=== PATIENT | female | born 1970 | race Hispanic/Latino ===

== ENCOUNTER 2017-06-09 09:38 | Outpatient (CLI) | payer BC | END 2017-06-09 09:39 | disposition home or self-care (01) | LOC: BICMAMMO 09:38 | PROVIDERS: ATTEND Nurse Practitioner Family | DX: R92.8 Other abnormal and inconclusive findings on diagnostic imaging of breast (principal); Z87.898 Personal history of other specified conditions | CPT/HCPCS: 77066; G0279 ==

== ENCOUNTER 2017-08-11 22:55 | Emergency (ER) | payer BC ==
[2017-08-11 23:35] LABS: #Eosinphils 0.2 thou/uL (0.0-0.7); #Lymphocytes 2.9 thou/uL (1.20-3.40); #Monocytes 0.4 thou/uL (0.11-0.59); #Neutrophils 4.2 thou/uL (1.40-6.50); %Basophils 0.2 % (0.0-1.0); %Eosinophils 2.2 % (0.0-10.0); %Lymphocytes 37.9 % (21.0-51.0); %Monocytes 5.4 % (0.0-10.0); %Neutrophils 54.3 % (42.0-75.0); Hemoglobin 13.9 g/dL (12.0-16.0); Mean Corpuscular HGB CONC 34.3 g/dL (32.0-36.0); Mean Corpuscular Hemoglobin 29.1 pg (27.0-31.0); Mean Corpuscular Volume 84.8 fl (81.0-99.0); Mean Platelet Volume 7.7 fL (7.4-10.4); Platelet Count 252 thou/uL (130-400); RBC Distribution Width 12.9 % (11.5-14.5); Red Blood Cell (RBC) Count 4.77 mill/uL (4.20-5.40); White Blood Cell (WBC) Count 7.7 thou/uL (4.8-10.8)
[2017-08-11 23:46] LABS: ALT (SGPT) 24 U/L (8-55); AST (SGOT) 17 U/L (5-34); Albumin 4.2 g/dL (3.5-5.0); Alkaline Phosphatase 119 U/L (40-150); Anion Gap 12 mmol/L (10-20); BUN (Urea Nitrogen) 23 mg/dL (7.0-18.7); Bilirubin, Total 0.2 mg/dL (0.2-1.2); CK (CPK) 101 U/L (29-168); Calc. Creatinine Clearance 0 mL/min (70-130); Calcium 10.1 mg/dL (7.8-10.44); Carbon Dioxide 27 mmol/L (22-29); Chloride 104 mmol/L (98-107); Estimated GFR-MDRD 70; Globulin 3.8 g/dL (2.4-3.5); Glucose 124 mg/dL (70-105); Potassium 3.8 mmol/L (3.5-5.1); Sodium 139 mmol/L (136-145)
--- NOTE | 2017-08-11 23:55 | RAD ---
CHEST ONE VIEW: 08/11/17 HISTORY: 47-year-old female with history of chest pain. COMPARISON: 08/03/12. FINDINGS/IMPRESSION: Heart size is normal. The lungs are clear. No pneumonia, edema or pleural effusion. POS: [facility]
[2017-08-11 23:57] LABS: CKMB 0.5 ng/mL (0-6.6); Troponin I Less than 0.010 ng/mL (< 0.028)
== END 2017-08-12 01:54 | disposition left against medical advice (07) ==
LOC: ERS 22:55
DX: Z53.21 Procedure and treatment not carried out due to patient leaving prior to being seen by health care provider (principal)
CPT/HCPCS: 36415; 71045; 80053; 82550; 82553; 84484; 85025; 93005

== ENCOUNTER 2018-03-14 09:51 | Outpatient (CLI) | payer BC ==
--- NOTE | 2018-03-14 12:25 | ULT ---
RIGHT BREAST ULTRASOUND: COMPARISON: 06/09/2017. HISTORY: Complex cyst seen at the 9 'clock position of the right breast on prior ultrasound. A simple cyst wa s seen in the 7 o'clock position of the right breast. Short interval followup for the complex cyst a t the 9 o'clock position. TECHNIQUE: Multiplanar, banerjee scale, and color Doppler images were obtained in a targeted ultrasound of the right breast. FINDINGS: At the 9 o'clock position of the right breast, there is a 6 mm isoechoic well circumscribed structure which is stable compared to the prior examination and may represent a complex cyst. Increased throu gh transmission is seen. An anechoic cyst is seen in the 7 o'clock position of the right breast. No suspicious shadowing is seen in the right breast. IMPRESSION: BIRADS CATEGORY 2 - benign findings. Annual screening mammography is recommended. The patient is du e for annual mammography in June of 2018. POS: [facility]
== END 2018-03-14 09:52 | disposition home or self-care (01) ==
LOC: BICULT 09:51
PROVIDERS: ATTEND Nurse Practitioner Family
DX: N60.01 Solitary cyst of right breast (principal)

== ENCOUNTER 2018-04-10 16:40 | Emergency (ER) | payer BC ==
[2018-04-10] MEDS ORDERED: Iopamidol 370 76% 100 ML VIAL ONE (16:42)
[2018-04-10 17:18] LABS: Bilirubin Negative (Negative); Blood, Urine Negative (Negative); Clarity CLEAR (Clear); Glucose, Urine (Dipstick) Negative (Negative); Leukocyte Negative (Negative); Nitrite Negative (Negative); Protein, Urine (Dipstick) Negative (Neg-Trace); Specific Gravity, Urine 1.024 (1.002-1.036); Urobilinogen 0.2 mg/dL (0.2-1.0); pH, Urine 5.5 (5.0-9.0)
[2018-04-10 18:08] LABS: #Eosinphils 0.1 thou/uL (0.0-0.7); #Lymphocytes 1.9 thou/uL (1.20-3.40); #Monocytes 0.3 thou/uL (0.11-0.59); #Neutrophils 4.1 thou/uL (1.40-6.50); %Basophils 0.2 % (0.0-1.0); %Eosinophils 1.8 % (0.0-10.0); %Lymphocytes 28.9 % (21.0-51.0); %Monocytes 5.3 % (0.0-10.0); %Neutrophils 63.9 % (42.0-75.0); Hemoglobin 13.9 g/dL (12.0-16.0); Mean Corpuscular HGB CONC 34.5 g/dL (32.0-36.0); Mean Corpuscular Hemoglobin 29.1 pg (27.0-31.0); Mean Corpuscular Volume 84.3 fL (78.0-98.0); Mean Platelet Volume 7.9 fL (7.4-10.4); Platelet Count 272 thou/uL (130-400); RBC Distribution Width 12.7 % (11.5-14.5); Red Blood Cell (RBC) Count 4.77 mill/uL (4.20-5.40); White Blood Cell (WBC) Count 6.4 thou/uL (4.8-10.8)
[2018-04-10 18:28] LABS: ALT (SGPT) 26 U/L (8-55); AST (SGOT) 21 U/L (5-34); Albumin 4.1 g/dL (3.5-5.0); Alkaline Phosphatase 110 U/L (40-150); Anion Gap 13 mmol/L (10-20); BUN (Urea Nitrogen) 17 mg/dL (7.0-18.7); Bilirubin, Total 0.3 mg/dL (0.2-1.2); Calc. Creatinine Clearance 0 mL/min (70-130); Calcium 9.5 mg/dL (7.8-10.44); Carbon Dioxide 25 mmol/L (22-29); Chloride 104 mmol/L (98-107); Estimated GFR-MDRD 84; Globulin 3.9 g/dL (2.4-3.5); Glucose 103 mg/dL (70-105); Lipase 29 U/L (8-78); Potassium 3.9 mmol/L (3.5-5.1); Sodium 138 mmol/L (136-145)
--- NOTE | 2018-04-10 19:08 | ULT ---
RIGHT UPPER QUADRANT ULTRASOUND: History: Right upper quadrant pain. Back pain. Technique: Multiplanar grayscale and color doppler images were obtained in a right upper quadrant abd ominal ultrasound. FINDINGS: The liver demonstrates increased echogenicity without focal lesions or intrahepatic ductal dilatation . There may be a small amount of sludge in the gallbladder. No shadowing stones are seen in the gallb ladder. There is no evidence of gallbladder wall thickening or pericholecystic fluid. The common bile duct is enlarged measuring 7 mm. The visualized portions of the pancreas are unremarkable. The right kidney is normal in echogenicity without hydronephrosis or calculi and measures 10.1 cm in length. IMPRESSION: 1. Fatty liver. 2. Possible gallbladder sludge. POS: [facility]
[2018-04-10] MEDS ORDERED: Morphine 2 MG/ML SYRINGE ONE (19:09)
[2018-04-10] MEDS ORDERED: Promethazine HCl 25 MG/ML VIAL ONE (21:10)
[2018-04-10] MEDS ORDERED: Morphine 4 MG/ML VIAL ONE (21:10)
--- NOTE | 2018-04-10 23:08 | CT ---
CT ABDOMEN AND PELVIS WITH CONTRAST: Comparison: None. History: Right flank pain that began on Lamine. Diarrhea. Technique: Multiple continuous axial images were obtained in a CT of the abdomen and pelvis with cont rast. Coronal reformat were performed. FINDINGS: Diffuse fatty infiltration of the liver is seen. The gallbladder, kidneys, adrenal glands, spleen, an d pancreas are unremarkable. No free air, free fluid, or stranding changes are seen in the abdomen or pelvis. The large and small bowel are unremarkable. The appendix is not definitely seen and may have been rem herman. The patient is status post hysterectomy. No abdominal or lymphadenopathy are seen. The osseous structures, visualized inferior thorax and abdominal wall soft tissues are unremarkable. IMPRESSION: 1. Fatty liver. 2. No evidence of acute intracranial/pelvic abnormality. POS: [facility]
== END 2018-04-10 22:40 | disposition home or self-care (01) ==
LOC: ERS 16:40
DX: S39.011A Strain of muscle, fascia and tendon of abdomen, initial encounter (principal); E11.9 Type 2 diabetes mellitus without complications; E78.00 Pure hypercholesterolemia, unspecified; X58.XXXA Exposure to other specified factors, initial encounter
CPT/HCPCS: 36415; 74177; 76705; 80053; 81003; 83690; 85025; 96361; 96374; 96375; 96376; J2270; J2550

== ENCOUNTER 2018-07-06 11:02 | Outpatient (CLI) | payer BC | END 2018-07-06 11:03 | disposition home or self-care (01) | LOC: BICMAMMO 11:02 | PROVIDERS: ATTEND Family Medicine | DX: Z12.31 Encounter for screening mammogram for malignant neoplasm of breast (principal); N63.10 Unspecified lump in the right breast, unspecified quadrant | CPT/HCPCS: 77063; 77067 ==

== ENCOUNTER 2018-09-06 14:00 | Emergency (ER) | payer BC ==
[2018-09-06 14:26] LABS: #Eosinphils 0.1 thou/uL (0.0-0.7); #Lymphocytes 2.3 thou/uL (1.20-3.40); #Monocytes 0.3 thou/uL (0.11-0.59); #Neutrophils 4.3 thou/uL (1.40-6.50); %Basophils 0.2 % (0.0-1.0); %Eosinophils 1.8 % (0.0-10.0); %Lymphocytes 32.2 % (21.0-51.0); %Monocytes 4.5 % (0.0-10.0); %Neutrophils 61.4 % (42.0-75.0); Hemoglobin 13.6 g/dL (12.0-16.0); Mean Corpuscular HGB CONC 33.1 g/dL (32.0-36.0); Mean Corpuscular Hemoglobin 28.8 pg (27.0-31.0); Mean Corpuscular Volume 86.9 fL (78.0-98.0); Mean Platelet Volume 7.9 fL (7.4-10.4); Platelet Count 251 thou/uL (130-400); RBC Distribution Width 12.7 % (11.5-14.5); Red Blood Cell (RBC) Count 4.72 mill/uL (4.20-5.40)
[2018-09-06 14:43] LABS: ALT (SGPT) 20 U/L (8-55); AST (SGOT) 16 U/L (5-34); Albumin 4.1 g/dL (3.5-5.0); Alkaline Phosphatase 109 U/L (40-150); Anion Gap 11 mmol/L (10-20); BUN (Urea Nitrogen) 15 mg/dL (7.0-18.7); Bilirubin, Total 0.4 mg/dL (0.2-1.2); Calc. Creatinine Clearance 0 mL/min (70-130); Calcium 9.6 mg/dL (7.8-10.44); Carbon Dioxide 27 mmol/L (22-29); Chloride 105 mmol/L (98-107); Estimated GFR-MDRD 82; Globulin 3.5 g/dL (2.4-3.5); Glucose 111 mg/dL (70-105); Lipase 22 U/L (8-78); Potassium 3.8 mmol/L (3.5-5.1); Protein, Total 7.6 g/dL (6.0-8.3); Sodium 139 mmol/L (136-145)
[2018-09-06 14:47] LABS: Bilirubin Negative (Negative); Blood, Urine Negative (Negative); Clarity CLOUDY (Clear); Glucose, Urine (Dipstick) Negative (Negative); Leukocyte Moderate (Negative); Nitrite Negative (Negative); Protein, Urine (Dipstick) Negative (Neg-Trace); Specific Gravity, Urine 1.016 (1.002-1.036); Urobilinogen 0.2 mg/dL (0.2-1.0); pH, Urine 5.5 (5.0-9.0)
[2018-09-06 14:50] LABS: Bacteria/HPF 3+ HPF (None Seen); Hyaline Casts/LPF 7-10 HYALINE CAST LPF (0-3 Hyaline); Pathc Cast-AUWi Flag 2.04 (0-2.49); Squamous Epithelial 0-3 HPF (0-3); WBC/HPF 21-50 HPF (0-3)
[2018-09-06 14:52] LABS: Yeast-AUWi Flag 65.2 (0-25.0)
[2018-09-06 14:59] LABS: RBC/HPF None Seen HPF (0-3); Yeast-All Forms None Seen HPF (None Seen)
--- NOTE | 2018-09-06 15:32 | ULT ---
Ultrasound abdomen limited: (Right upper quadrant) HISTORY: 48-year-old female with right upper quadrant abdominal pain FINDINGS: Gallbladder: Normal wall thickness. No evidence of pericholecystic fluid, gallstones, or sludge. Liver: Diffusely increased echogenicity, consistent with fatty liver. Common duct caliber: 6 mm Right kidney: No hydronephrosis. Pancreas: Nonspecific sonographic appearance. IMPRESSION: 1) Hepatic steatosis. 2) otherwise negative.
[2018-09-06] MEDS ORDERED: Morphine 4 MG/ML VIAL ONE (16:20)
[2018-09-06] MEDS ORDERED: Ondansetron ODT 8 MG TAB ONE (16:20)
== END 2018-09-06 16:47 | disposition home or self-care (01) ==
LOC: ERS 14:00
DX: K21.9 Gastro-esophageal reflux disease without esophagitis (principal); I10 Essential (primary) hypertension; E66.9 Obesity, unspecified; Z79.899 Other long term (current) drug therapy
CPT/HCPCS: 36415; 76705; 80053; 81003; 81015; 83690; 85025; 93005; 96372; J2270

== ENCOUNTER 2019-06-05 20:41 | Emergency (ER) | payer BC ==
[2019-06-05 21:30] LABS: #Basophils 0.1 thou/uL (0.0-0.2); #Eosinphils 0.1 thou/uL (0.0-0.7); #Lymphocytes 2.2 thou/uL (1.20-3.40); #Monocytes 0.5 thou/uL (0.11-0.59); #Neutrophils 4.7 thou/uL (1.40-6.50); %Basophils 0.7 % (0.0-1.0); %Eosinophils 1.6 % (0.0-10.0); %Lymphocytes 29.1 % (21.0-51.0); %Monocytes 6.7 % (0.0-10.0); %Neutrophils 61.9 % (42.0-75.0); Hemoglobin 13.7 g/dL (12.0-16.0); Mean Corpuscular HGB CONC 33.1 g/dL (32.0-36.0); Mean Corpuscular Hemoglobin 28.7 pg (27.0-31.0); Mean Corpuscular Volume 86.5 fL (78.0-98.0); Mean Platelet Volume 8.2 fL (7.4-10.4); Platelet Count 243 thou/uL (130-400); RBC Distribution Width 12.8 % (11.5-14.5); White Blood Cell (WBC) Count 7.6 thou/uL (4.8-10.8)
--- NOTE | 2019-06-05 21:46 | RAD ---
XR Chest Pa Lat STANDARD HISTORY: Left-sided chest pain COMPARISON: 06/08/2013 study. FINDINGS: Heart size and mediastinum are within normal limits. The lungs are clear of infiltrates. No significant bony findings. IMPRESSION: No active intrathoracic disease.
[2019-06-05 21:51] LABS: ALT (SGPT) 19 U/L (8-55); AST (SGOT) 14 U/L (5-34); Albumin 4.5 g/dL (3.5-5.0); Alkaline Phosphatase 111 U/L (40-110); Anion Gap 8 mmol/L (10-20); BUN (Urea Nitrogen) 21 mg/dL (9.8-20.1); Bilirubin, Total 0.3 mg/dL (0.2-1.2); CK (CPK) 106 U/L (29-168); Calc. Creatinine Clearance 0 mL/min (70-130); Calcium 10.4 mg/dL (7.8-10.44); Carbon Dioxide 34 mmol/L (22-29); Chloride 102 mmol/L (98-107); Estimated GFR-MDRD 78; Globulin 3.6 g/dL (2.4-3.5); Glucose 113 mg/dL (70-105); Lipase 35 U/L (8-78); Potassium 3.9 mmol/L (3.5-5.1); Protein, Total 8.1 g/dL (6.0-8.3); Sodium 140 mmol/L (136-145)
== END 2019-06-05 22:45 | disposition home or self-care (01) ==
LOC: ERS 20:41
DX: R07.9 Chest pain, unspecified (principal); Z79.899 Other long term (current) drug therapy
CPT/HCPCS: 36415; 71046; 80053; 82550; 83690; 84484; 85025; 93005; 94760

== ENCOUNTER 2019-06-29 13:49 | Emergency (ER) | payer BC ==
[2019-06-29] MEDS ORDERED: predniSONE 20 MG TAB ONE (14:43)
== END 2019-06-29 14:50 | disposition home or self-care (01) ==
LOC: ERS 13:49
DX: T78.40XA Allergy, unspecified, initial encounter (principal)
CPT/HCPCS: 99282; J7512

== ENCOUNTER 2019-06-30 11:04 | Inpatient (IN) | payer BC ==
[2019-06-30 13:12] LABS: #Eosinphils 0.1 thou/uL (0.0-0.7); #Lymphocytes 2.7 thou/uL (1.20-3.40); #Monocytes 0.6 thou/uL (0.11-0.59); #Neutrophils 6.5 thou/uL (1.40-6.50); %Basophils 0.5 % (0.0-1.0); %Eosinophils 0.9 % (0.0-10.0); %Lymphocytes 27.4 % (21.0-51.0); %Neutrophils 65.2 % (42.0-75.0); Mean Corpuscular Hemoglobin 29.3 pg (27.0-31.0); Mean Corpuscular Volume 86.2 fL (78.0-98.0); Mean Platelet Volume 8.4 fL (7.4-10.4); Platelet Count 244 thou/uL (130-400); Red Blood Cell (RBC) Count 4.78 mill/uL (4.20-5.40); White Blood Cell (WBC) Count 9.9 thou/uL (4.8-10.8)
[2019-06-30] MEDS ORDERED: MEROPENEM 1 GM/50 ML 1 GM in Premix Bag 1 BAG IVPB SCH (13:15)
[2019-06-30 13:33] LABS: ALT (SGPT) 18 U/L (8-55); AST (SGOT) 12 U/L (5-34); Albumin 4.3 g/dL (3.5-5.0); Alkaline Phosphatase 106 U/L (40-110); Anion Gap 10 mmol/L (10-20); BUN (Urea Nitrogen) 25 mg/dL (9.8-20.1); Bilirubin, Total 0.3 mg/dL (0.2-1.2); Calc. Creatinine Clearance 0 mL/min (70-130); Calcium 9.6 mg/dL (7.8-10.44); Carbon Dioxide 29 mmol/L (22-29); Chloride 102 mmol/L (98-107); Estimated GFR-MDRD 81; Globulin 3.7 g/dL (2.4-3.5); Glucose 92 mg/dL (70-105); Potassium 3.9 mmol/L (3.5-5.1); Sodium 137 mmol/L (136-145)
[2019-06-30] MEDS ORDERED: Acetaminophen 500 MG TAB ONE (14:37)
[2019-06-30] MEDS ORDERED: Ondansetron ODT 4 MG TAB PO PRN (14:52)
[2019-06-30] MEDS ORDERED: HYDROcodone/Acetaminophen 5/325 mg Tablet PO PRN (14:52)
[2019-06-30] MEDS ORDERED: Loperamide HCl 2 MG CAP PO PRN (14:52)
[2019-06-30] MEDS ORDERED: Calcium Carbonate 500 MG ChewTAB PO PRN (14:52)
[2019-06-30] MEDS ORDERED: Senokot S 8.6-50 MG TAB PO PRN (14:52)
[2019-06-30] MEDS ORDERED: Ondansetron PF 4 MG/2 ML Vial IVP PRN (14:52)
[2019-06-30] MEDS ORDERED: diphenhydrAMINE 25 MG CAP PO PRN (14:54)
[2019-06-30] MEDS ORDERED: Docusate 100 MG CAP PO PRN (14:54)
[2019-06-30] MEDS ORDERED: Melatonin 3 MG TAB PO PRN (14:54)
[2019-06-30] MEDS ORDERED: Benzonatate 100 MG CAP PO PRN (14:54)
[2019-06-30] MEDS ORDERED: Labetalol HCl 100 MG/20 ML VIAL SLOW IVP PRN (14:54)
[2019-06-30] MEDS ORDERED: methylPREDNISolone Sod Succ 40 MG VIAL IVP SCH (18:32)
[2019-06-30] MEDS ORDERED: diphenhydrAMINE 50 MG/ML VIAL IVP PRN (18:35)
[2019-06-30] MEDS ORDERED: Bacteriostatic Water 30 ML VIAL FS PRN (18:45)
--- NOTE | 2019-06-30 18:45 | PDOC.HHP ---
Hospitalist HPI - History of Present Illness UTI History of Present Illness: 49-year-old female with past medical history of urinary tract infection presents with UTI. Patient was seen by her primary care physician on Wednesday for urinary tract infection symptoms, a urine analysis and culture was obtained and the patient received intramuscular injection of antibiotic in the office. On Wednesday the patient filled an oral antibiotic with nitrofurantoin and had PRN pyridiom. On the patient noticed that she had above her gluteal region a large rash. She contacted her primary care physician who told her to go to the emergency department. Patient's urine culture, per the emergency department doctors growing Proteus that is sensitive to many oral antibiotics, however patient has significant drug allergies including other antibiotics which cause anaphylaxis and the only medication unit intravenous form that she has not had in the past is meropenem. I think find the patient on the medical floor she is breathing comfortably on room air. Patient is in no acute distress. I examine the drug reaction on the patient gluteal region which has mainly subsided and there are small area of bruising where it once was. Patient admitted to the medical unit for further evaluation. Hospitalist ROS - Review of Systems All other systems reviewed; all pertinent +/- noted in HPI/Subj Hospitalist History - Past Medical History Source: patient Infectious Disease: reports: Other (UTI) - Past Surgical History Past Surgical History: reports: (x3), Hysterectomy (partial with 1 ovary removal) - Family History Family History: reports: hypertension - Social History Smoking Status: Never smoker Alcohol: reports: None Drugs: reports: none Living Situation: With Family Activity level: independent ambulation - Exam General Appearance: NAD, awake alert Eye: anicteric sclera ENT: normocephalic atraumatic, moist mucosa Neck: supple, symmetric, no lymphadenopathy Heart: RRR, no murmur, no gallops, no rubs Respiratory: CTAB, no wheezes, no rales, no ronchi, normal chest expansion, no tachypnea Gastrointestinal: soft, non-tender, non-distended, no guarding, no rigidity Gastrointestinal - other findings: Mild suprapubic tenderness Extremities: no edema Skin - other findings: Superior gluteal region mild non palpable rash fading into a bruise Neurological: cranial nerve grossly intact, no weakness Musculoskeletal: normal tone, normal strength Psychiatric: normal affect, normal behavior, A&O x 3 Hospitalist Results - Labs Result Diagrams: 06/30/19 13:02 06/30/19 13:02 Lab results: WBC 9.9 thou/uL (4.8-10.8) 06/30/19 13:02 Hgb 14.0 g/dL (12.0-16.0) 06/30/19 13:02 Hct 41.2 % (36.0-47.0) 06/30/19 13:02 MCV 86.2 fL (78.0-98.0) 06/30/19 13:02 Plt Count 244 thou/uL (130-400) 06/30/19 13:02 Neutrophils % 65.2 % (42.0-75.0) 06/30/19 13:02 Sodium 137 mmol/L (136-145) 06/30/19 13:02 Potassium 3.9 mmol/L (3.5-5.1) 06/30/19 13:02 Chloride 102 mmol/L (98-107) 06/30/19 13:02 Carbon Dioxide 29 mmol/L (22-29) 06/30/19 13:02 BUN 25 mg/dL (9.8-20.1) H 06/30/19 13:02 Creatinine 0.75 mg/dL (0.6-1.1) 06/30/19 13:02 Glucose 92 mg/dL (70-105) 06/30/19 13:02 Calcium 9.6 mg/dL (7.8-10.44) 06/30/19 13:02 Total Bilirubin 0.3 mg/dL (0.2-1.2) 06/30/19 13:02 AST 12 U/L (5-34) 06/30/19 13:02 ALT 18 U/L (8-55) 06/30/19 13:02 Alkaline Phosphatase 106 U/L (40-110) 06/30/19 13:02 Serum Total Protein 8.0 g/dL (6.0-8.3) 06/30/19 13:02 Albumin 4.3 g/dL (3.5-5.0) 06/30/19 13:02 Hospitalist H&P A/P - Problem (1) UTI (urinary tract infection) Status: Acute (2) Proteus mirabilis infection Code(s): A49.8 - OTHER BACTERIAL INFECTIONS OF UNSPECIFIED SITE Status: Acute (3) Drug allergy Code(s): Z88.9 - ALLERGY STATUS TO UNSP DRUG/MEDS/BIOL SUBST STATUS Status: Acute (4) Obesity Code(s): E66.9 - OBESITY, UNSPECIFIED Status: Acute (5) Impaired glucose tolerance Code(s): R73.02 - IMPAIRED GLUCOSE TOLERANCE (ORAL) Status: Acute - Plan Plan: Plan: admit to medical unit infectious disease consultation in a.m. patient has had a dose of meropenem and has not had any signs of allergic reaction low chance of cross-reactivity, though patient has numerous allergies to medications patient was to be on prednisone for drug allergy, I will convert IV formulary IV Benadryl PRN allergy symptoms repeat urine analysis urine culture de-escalate to culture and sensitivity as able blood pressure control blood sugar control patient states that she is borderline hypertensive and borderline diabetic G.I. prophylaxis DVT prophylaxis
[2019-06-30 20:06] VITALS: BMI 35.5
[2019-06-30] MEDS: methylPREDNISolone Sod Succ 40 MG VIAL IVP SCH (20:25)
[2019-06-30] MEDS: Famotidine 20 MG TAB PO SCH (20:31)
[2019-06-30] MEDS: Meropenem 2 GM, Admixture Fee 1 EACH in Sodium Chloride 0.9% 100 ML IVPB SCH (21:32)
[2019-06-30] MEDS ORDERED: Meropenem 2 GM in Admixture Fee 1 EACH IVPB SCH (22:00)
[2019-07-01] MEDS: methylPREDNISolone Sod Succ 40 MG VIAL IVP SCH (01:12)
[2019-07-01] MEDS: Meropenem 2 GM, Admixture Fee 1 EACH in Sodium Chloride 0.9% 100 ML IVPB SCH ×3 (05:44→21:56)
[2019-07-01 06:11] LABS: #Lymphocytes 0.9 thou/uL (1.20-3.40); #Monocytes 0.1 thou/uL (0.11-0.59); #Neutrophils 6.9 thou/uL (1.40-6.50); %Basophils 0.1 % (0.0-1.0); %Eosinophils 0.1 % (0.0-10.0); %Monocytes 0.6 % (0.0-10.0); %Neutrophils 88.2 % (42.0-75.0); Hemoglobin 14.1 g/dL (12.0-16.0); Mean Corpuscular HGB CONC 34.1 g/dL (32.0-36.0); Mean Platelet Volume 8.4 fL (7.4-10.4); Platelet Count 240 thou/uL (130-400); RBC Distribution Width 13.2 % (11.5-14.5); White Blood Cell (WBC) Count 7.8 thou/uL (4.8-10.8)
[2019-07-01 06:36] LABS: Anion Gap 12 mmol/L (10-20); BUN (Urea Nitrogen) 19 mg/dL (9.8-20.1); Calc. Creatinine Clearance 140 mL/min (70-130); Calcium 9.3 mg/dL (7.8-10.44); Carbon Dioxide 26 mmol/L (22-29); Chloride 103 mmol/L (98-107); Estimated GFR-MDRD 79; Glucose 175 mg/dL (70-105); Potassium 4.1 mmol/L (3.5-5.1); Sodium 137 mmol/L (136-145)
[2019-07-01] MEDS: Famotidine 20 MG TAB PO SCH ×2 (08:44→20:16)
[2019-07-01 12:40] LABS: Hemoglobin A1c 5.8 % (4.0-6.0)
[2019-07-01] MEDS: Acetaminophen 325 MG TAB PO PRN ×2 (14:38→20:15)
--- NOTE | 2019-07-01 16:29 | PDOC.HOSPP ---
- Subjective Subjective: Seen and examined on the medical unit. Patient breathing comfortably on room air. Patient states that she has had no allergic type symptoms with the addition of meropenem. She is having no oral tingling or swelling. No rashes or other drug reaction. Patient states that the skin on her bottom is no longer itchy. - Objective Vital Signs & Weight: Vital Signs (12 hours) Temp Pulse Resp BP Pulse Ox 07/01/19 15:15 97.6 F 82 15 103/65 94 L 07/01/19 11:21 97.6 F 86 16 99/65 94 L 07/01/19 07:50 97.8 F 75 16 135/81 92 L Weight Weight 227 lb I&O: 06/30/19 07/01/19 07/02/19 06:59 06:59 06:59 Intake Total 680 Output Total 900 Balance -220 Result Diagrams: 07/01/19 05:48 07/01/19 05:48 Radiology Reviewed by me: Yes Hospitalist ROS - Review of Systems All other systems reviewed; all pertinent +/- noted in HPI/Subj - Medication Medications: Active Medications Generic Name Dose Route Start Last Admin Trade Name Freq PRN Reason Stop Dose Admin Acetaminophen 650 mg 06/30/19 14:52 07/01/19 14:38 Tylenol PO 650 mg Q4H PRN Administration Headache/Fever/Mild Pain (1-3) Famotidine 20 mg 06/30/19 21:00 07/01/19 08:44 Pepcid PO 20 mg BID TRES Administration Meropenem 2 gm/ Miscellaneous 100 mls @ 200 mls/hr 06/30/19 22:00 07/01/19 14 :56 Medication 1 each/ Sodium IVPB 100 mls Chloride Q8HR TRES Administration - Exam General Appearance: NAD, awake alert Eye: anicteric sclera ENT: normocephalic atraumatic, moist mucosa Neck: supple, symmetric, no lymphadenopathy Heart: no murmur, no gallops, no rubs Heart - other findings: Bradycardia Respiratory: CTAB, no wheezes, no rales, no ronchi, normal chest expansion Gastrointestinal: non-tender, no guarding, no rigidity Extremities: no edema Skin: no lesions Skin - other findings: Resolving supragluteal drug reaction Neurological: cranial nerve grossly intact, no focal deficits Musculoskeletal: normal strength Psychiatric: A&O x 3 Hosp A/P (1) UTI (urinary tract infection) Status: Acute (2) Proteus mirabilis infection Code(s): A49.8 - OTHER BACTERIAL INFECTIONS OF UNSPECIFIED SITE Status: Acute (3) Drug allergy Code(s): Z88.9 - ALLERGY STATUS TO UNSP DRUG/MEDS/BIOL SUBST STATUS Status: Acute (4) Obesity Code(s): E66.9 - OBESITY, UNSPECIFIED Status: Acute (5) Impaired glucose tolerance Code(s): R73.02 - IMPAIRED GLUCOSE TOLERANCE (ORAL) Status: Acute - Plan Plan: medical unit infectious disease consultation, recommendations appreciated climb broad- spectrum biotics with meropenem urine culture de-escalate to culture and sensitivity outpatient culture growing Proteus mirabilis which was sensitive to oral medications, however with significant drug allergies including anaphylaxis these medications were contraindicated status post two doses of IV Solu-Medrol have successfully calm down allergic reaction on patient's backside Benadryl PRN itching/medication side effects pain control blood pressure control hemoglobin A1c to monitor for diabetes, patient states that she is prediabetic blood sugar control G.I. prophylaxis DVT prophylaxis
[2019-07-02] MEDS: Acetaminophen 325 MG TAB PO PRN ×2 (04:54→14:42)
[2019-07-02] MEDS: Meropenem 2 GM, Admixture Fee 1 EACH in Sodium Chloride 0.9% 100 ML IVPB SCH ×2 (05:25→15:26)
[2019-07-02] MEDS: Famotidine 20 MG TAB PO SCH (09:14)
--- NOTE | 2019-07-02 13:17 | PDOC.HOSPP ---
- Subjective Subjective: Seen and examined. Continues to improve. No UTI symptoms. Afebrile. Patient tolerating meropenem without allergic reactions or drug side effects. Mild headache has been improved with Tylenol. Time was given for questions, all answered in detail. - Objective Vital Signs & Weight: Vital Signs (12 hours) Temp Pulse Resp BP Pulse Ox 07/02/19 11:32 98.4 F 68 16 111/78 94 L 07/02/19 08:00 97.8 F 76 16 119/77 96 07/02/19 04:56 97.6 F 68 16 121/77 96 Weight Weight 227 lb I&O: 07/01/19 07/02/19 07/03/19 06:59 06:59 06:59 Intake Total 680 690 Output Total 900 600 Balance -220 90 Result Diagrams: 07/01/19 05:48 07/01/19 05:48 Radiology Reviewed by me: Yes Hospitalist ROS - Review of Systems All other systems reviewed; all pertinent +/- noted in HPI/Subj - Medication Medications: Active Medications Generic Name Dose Route Start Last Admin Trade Name Freq PRN Reason Stop Dose Admin Acetaminophen 650 mg 06/30/19 14:52 07/02/19 04:54 Tylenol PO 650 mg Q4H PRN Administration Headache/Fever/Mild Pain (1-3) Famotidine 20 mg 06/30/19 21:00 07/02/19 09:14 Pepcid PO 20 mg BID TRES Administration Meropenem 2 gm/ Miscellaneous 100 mls @ 200 mls/hr 06/30/19 22:00 07/02/19 05 :25 Medication 1 each/ Sodium IVPB 100 mls Chloride Q8HR TRES Administration - Exam General Appearance: NAD, awake alert Eye: anicteric sclera ENT: normocephalic atraumatic, moist mucosa Neck: supple, symmetric, no lymphadenopathy Heart: no murmur, no gallops, no rubs Respiratory: CTAB, no wheezes, no rales, no ronchi, no tachypnea Gastrointestinal: soft, non-tender, no guarding, no rigidity Gastrointestinal - other findings: No longer with suprapubic tenderness Extremities: no edema Skin: no lesions, no rashes Neurological: cranial nerve grossly intact, no focal deficits Musculoskeletal: normal tone, normal strength Psychiatric: normal behavior, A&O x 3 Hosp A/P (1) UTI (urinary tract infection) Status: Acute (2) Proteus mirabilis infection Code(s): A49.8 - OTHER BACTERIAL INFECTIONS OF UNSPECIFIED SITE Status: Acute (3) Drug allergy Code(s): Z88.9 - ALLERGY STATUS TO UNSP DRUG/MEDS/BIOL SUBST STATUS Status: Acute (4) Obesity Code(s): E66.9 - OBESITY, UNSPECIFIED Status: Acute (5) Impaired glucose tolerance Code(s): R73.02 - IMPAIRED GLUCOSE TOLERANCE (ORAL) Status: Acute - Plan Plan: medical unit infectious disease consultation, recommendations appreciated Continue broad-spectrum biotics with meropenem urine culture de-escalate to culture and sensitivity outpatient culture growing Proteus mirabilis which was sensitive to oral medications, however with significant drug allergies including anaphylaxis these medications were contraindicated status post two doses of IV Solu-Medrol have successfully calm down allergic reaction on patient's backside Benadryl PRN itching/medication side effects pain control blood pressure control hemoglobin A1c 5.8, diet and exercise changes blood sugar control G.I. prophylaxis DVT prophylaxis
[2019-07-02 15:54] VITALS: BP 106/70; TEMP 97.5
--- NOTE | 2019-07-02 17:11 | CON ---
DATE OF CONSULTATION: REASON FOR CONSULTATION: Cystitis. HISTORY OF PRESENT ILLNESS: A 49-year-old patient with a history of partial hysterectomy, x3, and episodic UTIs usually once the year, which are treated with various oral antimicrobials, but lately she has developed what appears to be some hypersensitivity reactions of angioedema and rash to most oral outpatient antimicrobials, so she was admitted for treatment at this time. She is on meropenem and symptoms have improved with resolution of dysuria. She denies any headaches. No sore throat, odynophagia, or dysphagia. No dental pain. No back pain or flank pain. No fever or chills. No respiratory symptoms. Otherwise, no diarrhea. No diarrhea. No skin problems. PAST MEDICAL HISTORY: Infrequent UTIs usually in the form of cystitis once a year at the most and then multiple drug hypersensitivity reactions. MEDICATIONS: The list includes: 1. Amoxicillin. 2. Rocephin. 3. Ciprofloxacin. 4. Doxycycline. 5. Macrodantin. 6. Flagyl. 7. Sulfa drugs. FAMILY HISTORY: Noncontributory. SOCIAL HISTORY: She works driving a school bus. Does not smoke. Does not drink alcoholic beverages. PHYSICAL EXAMINATION: VITAL SIGNS: T-max 98.4 blood pressure 111/78, pulse 68, respirations 16, and O2 saturation 96. SKIN: Normal. There is no lymphadenopathy. She has a peripheral IV access. Voiding normally without difficulty at the moment. HEENT: Normal. LUNGS: Clear. HEART: S1 and S2. Regular rate. ABDOMEN: Soft with no tenderness in the suprapubic area. EXTREMITIES: Joints are normal. No edema. Pulses 1+ in dorsalis pedis. NEURO: Nonfocal. LABORATORY DATA: White cell count 9.9 and 7.8, differential with slight elevation of neutrophil percentage of 88 and creatinine 0.77. Liver profile normal. Globulin 3.7. There is a urinalysis, which was done at [facility] somewhere else. We do not have the results and there is a urine culture as well, we do not have the results for that. ASSESSMENT AND PLAN: Episodic cystitis. The last one prompted this admission because of multiple reported drug hypersensitivity reactions. She has completed now three days of meropenem and she is asymptomatic and eligible for discharge planning. Next time, one could consider fosfomycin, which can be taken orally every other day for three doses for treatment of cystitis as usually effective even for certain resistant pathogens. Job ID: [id number]
--- NOTE | 2019-07-03 04:04 | DIS ---
DATE OF ADMISSION: 06/30/2019 DATE OF DISCHARGE: 07/02/2019 REASON FOR HOSPITALIZATION: Urinary tract infection. SIGNIFICANT FINDINGS: The patient with complicated urinary tract infection with numerous allergies to oral antibiotics. PROCEDURES PERFORMED AND TREATMENTS RENDERED: The patient was admitted to the medical unit for close management. A urine culture from outpatient clinic with Proteus mirabilis, which was sensitive to meropenem, the patient was admitted and started on meropenem and she had a good response. The patient receiving 3 days of meropenem intravenously and an Infectious Disease consultation was requested. Please see full consultation note from Infectious Disease specialist, Dr. Sosa for details. Over the course of infusion of IV antibiotics with meropenem, the patient's symptoms have resolved. The patient is no longer having urinary tract infections without burning, frequency, urgency, or dysuria. The patient has remained afebrile throughout her hospitalization. The patient's WBC count is normal. The patient was recommended safe for discharge by Infectious Disease specialist, and discontinuation of antibiotics was recommended. The patient was discharged on 07/02/2019 in stable condition. CONDITION ON DISCHARGE: Stable. SPECIFIC INSTRUCTIONS FOR THE PATIENT/FAMILY: 1. The patient is recommended to take all home medications as directed. 2. The patient is recommended to follow up with primary care physician in the next 5-7 days. 3. The patient is recommended to follow up with Infectious Disease specialist, Dr. Sosa in the next 1-2 weeks. 4. The patient recommended to return to acute care hospital immediately if signs or symptoms return, worsen, or any other new symptoms occur. DISCHARGE MEDICATIONS: Please see full discharge medication list for details, as they were continued without changes. 1. Topamax 25 mg 1 tablet p.o. at bedtime. 2. Omeprazole 20 mg 1 tablet p.o. q.a.m. 3. No antibiotics were recommended per Infectious Disease specialist. Greater than 38 minutes spent coordinating care and discharge process for this patient. Job ID: [id number]
== END 2019-07-02 18:22 | disposition home or self-care (01) | DRG 690 ==
LOC: ERS 11:04 → SJJU 16:00
PROVIDERS: ADMIT Internal Medicine; ATTEND Internal Medicine
DX: N39.0 Urinary tract infection, site not specified (principal); E66.9 Obesity, unspecified; R73.02 Impaired glucose tolerance (oral); B96.4 Proteus (mirabilis) (morganii) as the cause of diseases classified elsewhere; Z88.1 Allergy status to other antibiotic agents; Z90.710 Acquired absence of both cervix and uterus; Z88.2 Allergy status to sulfonamides; Z88.8 Allergy status to other drugs, medicaments and biological substances; Z68.35 Body mass index [BMI] 35.0-35.9, adult
CPT/HCPCS: 36415; 80048; 80053; 83036; 85025; 96365; 99282; J2185; J2920; J3490; J7512

== ENCOUNTER 2019-12-13 18:40 | Emergency (ER) | payer BC, OTHER ==
--- NOTE | 2019-12-13 19:24 | RAD ---
LEFT HAND THREE VIEWS: 12/13/19 HISTORY: Left ring finger and left middle finger injury and pain. FINDINGS/IMPRESSION: No acute fracture or dislocation is seen. No radiopaque foreign body is seen. POS: [facility]
== END 2019-12-13 19:54 | disposition home or self-care (01) ==
LOC: ERS 18:40
DX: S63.617A Unspecified sprain of left little finger, initial encounter (principal); S63.615A Unspecified sprain of left ring finger, initial encounter; S63.613A Unspecified sprain of left middle finger, initial encounter; Z79.899 Other long term (current) drug therapy; W22.8XXA Striking against or struck by other objects, initial encounter

== ENCOUNTER 2020-02-15 18:07 | Emergency (ER) | payer BC ==
[2020-02-15] MEDS ORDERED: Lidocaine 4% Cream 5 GM TUBE w/ Tegaderm ONE (18:25)
[2020-02-15] MEDS ORDERED: diphenhydrAMINE 25 MG CAP ONE (18:27)
[2020-02-15] MEDS ORDERED: Dexamethasone 4 mg/ml Vial ONE (18:27)
[2020-02-15] MEDS ORDERED: Famotidine 20 MG TAB ONE (18:27)
== END 2020-02-15 19:20 | disposition home or self-care (01) ==
LOC: ERS 18:07
DX: T63.441A Toxic effect of venom of bees, accidental (unintentional), initial encounter (principal); R73.03 Prediabetes
CPT/HCPCS: 99282; J1100; Q0163

== ENCOUNTER 2020-04-02 21:05 | Emergency (ER) | payer BC ==
[2020-04-02] MEDS ORDERED: Ketorolac Tromethamine 30 MG/ML VIAL ONE (21:57)
[2020-04-02 22:05] LABS: #Eosinphils 0.1 thou/uL (0.0-0.7); #Lymphocytes 2.1 thou/uL (1.20-3.40); #Monocytes 0.6 thou/uL (0.11-0.59); %Basophils 0.2 % (0.0-1.0); %Eosinophils 2.2 % (0.0-10.0); %Lymphocytes 30.7 % (21.0-51.0); %Monocytes 8.8 % (0.0-10.0); %Neutrophils 58.2 % (42.0-75.0); Hemoglobin 13.9 g/dL (12.0-16.0); Mean Corpuscular HGB CONC 34.5 g/dL (32.0-36.0); Mean Corpuscular Hemoglobin 29.8 pg (27.0-31.0); Mean Corpuscular Volume 86.3 fL (78.0-98.0); Mean Platelet Volume 8.6 fL (7.4-10.4); Platelet Count 228 thou/uL (130-400); RBC Distribution Width 12.6 % (11.5-14.5); Red Blood Cell (RBC) Count 4.67 mill/uL (4.20-5.40); White Blood Cell (WBC) Count 6.9 thou/uL (4.8-10.8)
[2020-04-02 22:14] LABS: ALT (SGPT) 22 U/L (8-55); AST (SGOT) 18 U/L (5-34); Alkaline Phosphatase 103 U/L (40-110); Anion Gap 15 mmol/L (10-20); BUN (Urea Nitrogen) 23 mg/dL (9.8-20.1); Bilirubin, Total 0.2 mg/dL (0.2-1.2); Calc. Creatinine Clearance 0 mL/min (70-130); Calcium 9.6 mg/dL (7.8-10.44); Carbon Dioxide 23 mmol/L (22-29); Chloride 105 mmol/L (98-107); Estimated GFR-MDRD 50; Globulin 3.7 g/dL (2.4-3.5); Glucose 102 mg/dL (70-105); Potassium 4.2 mmol/L (3.5-5.1); Protein, Total 7.7 g/dL (6.0-8.3); Sodium 139 mmol/L (136-145)
[2020-04-02 23:09] LABS: Bilirubin Negative (Negative); Blood, Urine Negative (Negative); Clarity Clear (Clear); Glucose, Urine (Dipstick) Normal (Negative); Ketone, Urine Negative (Negative); Leukocyte Negative Leu/uL (Negative); Nitrite Negative (Negative); Protein, Urine (Dipstick) Negative (Neg-Trace); Specific Gravity, Urine 1.018 (1.002-1.036); Urobilinogen Normal mg/dL (Less than 2); pH, Urine 5.5 (5.0-9.0)
--- NOTE | 2020-04-02 23:56 | CT ---
CT of abdomen and pelvis: 04/02/2020 COMPARISON: 04/10/2018 HISTORY: Low back pain, urinary tract infection TECHNIQUE: Axial CT imaging at 5 mm intervals from lung bases through pubic symphysis without contras t. Coronal reformatted imaging obtained. FINDINGS: Lack of contrast media limits assessment of the viscera, bowel, vascular structures, and fo r lymphadenopathy. The imaged lung bases are unremarkable with no free intraperitoneal air or fluid seen. The hepatic parenchyma is hypodense suggesting steatosis. The gallbladder is contracted and not well assessed on this exam. The spleen, pancreas, adrenal glands, and kidneys appear unremarkable. No discrete nephrolithiasis is seen on either side. There is no evidence for obstructive uropathy. There is diverticulosis of the sigmoid colon with no evidence for diverticulitis. No evidence for bow el inflammatory change or bowel obstruction. No acute osseous abnormality. Degenerative change is noted at the lumbosacral junction. IMPRESSION: No evidence for obstructive uropathy or nephrolithiasis.
== END 2020-04-03 00:22 | disposition home or self-care (01) ==
LOC: ERS 21:05
DX: R10.30 Lower abdominal pain, unspecified (principal); R35.0 Frequency of micturition; G43.909 Migraine, unspecified, not intractable, without status migrainosus
CPT/HCPCS: 74176; 80053; 81003; 85025; 87077; 87086; 87186; 96374; J1885

== ENCOUNTER 2020-04-10 11:07 | Emergency (ER) | payer BC ==
[2020-04-10] MEDS ORDERED: Dexamethasone 4 mg/ml Vial ONE (11:41)
[2020-04-10] MEDS ORDERED: Famotidine 20 MG TAB ONE ×2 (11:41→11:48)
[2020-04-10] MEDS ORDERED: diphenhydrAMINE 25 MG CAP ONE (11:41)
[2020-04-10] MEDS ORDERED: Dexamethasone 4 MG TAB ONE (11:58)
[2020-04-10] MEDS ORDERED: Fosfomycin 3 GM/Packet PO SCH (12:00)
[2020-04-10 12:21] LABS: Bilirubin Negative (Negative); Blood, Urine Negative (Negative); Clarity Clear (Clear); Glucose, Urine (Dipstick) Normal (Negative); Ketone, Urine Negative (Negative); Leukocyte Negative Leu/uL (Negative); Nitrite Negative (Negative); Pregnancy Test - Urine (BHCG) Negative (Negative); Protein, Urine (Dipstick) Negative (Neg-Trace); Specific Gravity, Urine 1.032 (1.002-1.036); Urobilinogen Normal mg/dL (Less than 2); pH, Urine 5.5 (5.0-9.0)
[2020-04-10 12:22] LABS: Pregu Control Background? CLEAR/WHITE (CLR/WHITE); Pregu Control Bar Appear? YES (CONTROL BAR); Specific Gravity 1.032 (1.002-1.036)
== END 2020-04-10 13:05 | disposition home or self-care (01) ==
LOC: ERS 11:07
DX: R22.0 Localized swelling, mass and lump, head (principal); T36.1X5A Adverse effect of cephalosporins and other beta-lactam antibiotics, initial encounter; N39.0 Urinary tract infection, site not specified; G43.909 Migraine, unspecified, not intractable, without status migrainosus
CPT/HCPCS: 81003; 81025; 99283; J1100; J8540; Q0163

== ENCOUNTER 2020-06-15 10:47 | Emergency (ER) | payer BC ==
[2020-06-15] MEDS ORDERED: Acetaminophen 500 MG TAB ONE (11:48)
[2020-06-15] MEDS ORDERED: Fosfomycin 3 GM/Packet PO SCH (12:00)
[2020-06-15 12:02] LABS: Bilirubin Negative (Negative); Blood, Urine Large (Negative); Glucose, Urine (Dipstick) Negative (Negative); Ketone, Urine Negative (Negative); Leukocyte Small (Negative); Protein, Urine (Dipstick) 100 mg/dL (Neg-Trace); Urobilinogen 0.2 mg/dL (Less than 2); pH, Urine 5.5 (5.0-9.0)
[2020-06-15 12:03] LABS: Clarity Turbid (Clear)
[2020-06-15 12:05] LABS: Nitrite Unable to Interpret (Negative); Specific Gravity, Urine 1.023 (1.002-1.036)
[2020-06-15 12:06] LABS: Pregnancy Test - Urine (BHCG) Negative (Negative); Pregu Control Background? CLEAR/WHITE (CLR/WHITE); Pregu Control Bar Appear? YES (CONTROL BAR); Specific Gravity 1.023 (1.002-1.036)
[2020-06-15 12:10] LABS: RBC/HPF Greater than 50 HPF (0-3); WBC/HPF Greater Than 50 HPF (0-3)
[2020-06-15 12:11] LABS: Bacteria/HPF 3+ HPF (None Seen); Squamous Epithelial 0-3 HPF (0-3)
== END 2020-06-15 13:29 | disposition home or self-care (01) ==
LOC: ERS 10:47
DX: N30.91 Cystitis, unspecified with hematuria (principal); R73.03 Prediabetes
CPT/HCPCS: 81003; 81015; 81025; 87077; 87086; 87186; 99283

== ENCOUNTER 2021-04-01 13:13 | Outpatient (CLI) | payer BC | END 2021-04-01 13:14 | disposition home or self-care (01) | LOC: BICMAMMO 13:13 | PROVIDERS: ATTEND Family Medicine | DX: Z12.31 Encounter for screening mammogram for malignant neoplasm of breast (principal); Z91.89 Other specified personal risk factors, not elsewhere classified | CPT/HCPCS: 77063; 77067 ==

== ENCOUNTER 2022-04-30 08:11 | Outpatient (CLI) | payer BC | END 2022-04-30 08:12 | disposition home or self-care (01) | LOC: BICMAMMO 08:11 | PROVIDERS: ATTEND Family Medicine | DX: Z12.31 Encounter for screening mammogram for malignant neoplasm of breast (principal); Z91.89 Other specified personal risk factors, not elsewhere classified | CPT/HCPCS: 77063; 77067 ==